=== PATIENT | male | born 1990 | race Caucasian/White ===

== ENCOUNTER 2017-07-10 20:55 | Emergency (ER) | payer SELFPAY ==
[~2017-07-10] VITALS: Ht 152.4 cm; Wt 51.2 kg
[2017-07-10 21:02] VITALS: Ht 152.4 cm; Wt 51.2 kg
[2017-07-10] MEDS ORDERED: IBUPROFEN 800 MG TAB PO ONE (22:30)
[2017-07-10] MEDS ORDERED: IBUP-1542 PO (22:42)
[2017-07-10] MEDS ORDERED: CEPH-443 PO (22:42)
[2017-07-10] MEDS ORDERED: SULF1TAB31 PO (22:42)
--- NOTE | 2017-07-11 01:27 | ERD ---
ER Documentation Chief Complaint Chief Complaint left big toe ingrown nail HPI Is a 27-year-old male who presents to the emergency department today complaining of an ingrown toenails left toe for the past 6 weeks. States he has not taken a medication for the pain. Denies any fevers or chills. ROS All systems reviewed and are negative except as per history of present illness. Medications Home Meds Active Scripts Cephalexin* (Keflex*) 500 Mg Capsule, 500 MG PO QID for 7 Days, CAP Prov:DEBBIE HALL PA-C 07/10/17 Sulfamethoxazole/Trimethoprim* (Bactrim Ds* Tablet) 1 Each Tablet, 1 TAB PO BID for 7 Days, #14 TAB Prov:DEBBIE HALL PA-C 07/10/17 Ibuprofen* (Motrin*) 600 Mg Tab, 600 MG PO Q6, #30 TAB Prov:DEBBIE HALL PA-C 07/10/17 Allergies Allergies: Coded Allergies: No Known Allergy (Unverified , 07/10/17) PMhx/Soc Medical and Surgical Hx: pt denies Medical Hx History of Surgery: Yes (left middle finger arterial repair; 2014) Anesthesia Reaction: No Hx Neurological Disorder: No Hx Respiratory Disorders: No Hx Cardiac Disorders: No Hx Psychiatric Problems: No Hx Miscellaneous Medical Probl: No Hx Alcohol Use: Yes (socially) Hx Substance Use: No Hx Tobacco Use: Yes (cigarettes; 1 pack every 3 months) Smoking Status: Light tobacco smoker Physical Exam Vitals Vital Signs Date Time Temp Pulse Resp B/P Pulse Ox O2 Delivery O2 Flow Rate FiO2 07/10/17 21:02 97.8 82 20 130/68 100 Physical Exam Const: NAD Head: Atraumatic Eyes: Normal Conjunctiva ENT: Normal External Ears, Nose and Mouth. Neck: Full range of motion..~ No meningismus. Resp: Clear to auscultation bilaterally Cardio: Regular rate and rhythm, no murmurs Skin: No petechiae or rashes MSk: Left great toe with evidence of infected ingrown toenail with mild drainage small amount of redness. Onychomycotic great toenail bilateral feet . Neur: Awake and alert Psych: Normal Mood and Affect Results 24 hrs Current Medications Medications (Trade) Dose Ordered Sig/Jayro Route PRN Reason Start Time Stop Time Status Last Admin Dose Admin Ibuprofen (Motrin) 800 mg ONCE ONCE PO 07/10/17 22:30 07/10/17 22:31 DC 07/10/17 22:26 Procedures/MDM This is a 27-year-old male presents emergency department today complaining of an ingrown toenail on his left toe for the past 6 weeks. Patient has not tried any medication. Patient does not have a primary care doctor. On physical exam patient has evidence of a infected ingrown toenail. There is a significant amount of onychomycosis and mild purulent drainage and I do not feel is beneficial to remove the patient's toenail at this time. Patient has fungal infection on other toes have explained to him that he does need to see a bottom crane operator. Patient was given a list of referrals for podiatry. Patient is afebrile and otherwise well-appearing. I have low suspicion for sepsis, deep space tracking infection or cellulitis. Patient was given a prescription for Bactrim and Keflex. He was given Naprosyn here in the emergency department as well as a prescription for Tylenol Motrin for home. At this time the patient is stable for discharge and outpatient management. Patient should follow up with their PCP in the next 1-2 days. They may return to the emergency department sooner for any persistent or worsening of symptoms. Patient understood and agreed with the plan. Departure Diagnosis: Primary Impression: Ingrown toenail Condition: Stable Patient Instructions: Ingrown Toenail, Infected (Abx Only) Referrals: EMELY RIOS KAZUTO H AYVAZIAN, HERMOZ B DPM MEKA GEORGE DPKYMBERLY VIVAS DPM, STEVEN CHAUDHRY, ABID N DPNATHAN CARROLL DPNADIA CARDOZA FARID ESPENSEN, ERIC H. D.P.M. HAGOPJANIAN, ARMEN DPM [facility] () Usted se stone hecho un examen mdico de control que le indica que no est en hamilton condicin que requiera tratamiento urgente en el Departamento de Emergencia. Un estudio ms profundo y el tratamiento de vergara condicin pueden esperar sin ningn riesgo hasta que usted sea atendida/o en el consultorio de vergara mdico o hamilton cl ciara. Es responsabilidad suya arreglar hamilton harvinder para el seguimiento del lorrie. MANEJO DE CONDICIONES NO URGENTES EN EL FUTURO 1) Si usted tiene un mdico de atencin primaria: Usted debera llamar a vergara mdico de atencin primaria antes de venir al departamento de emergencia. Despus de las horas de consultorio, vergara doctor o vergara asociado/a est disponible por telfono. El mdico o enfermero de dennis en el servicio telefnico puede asesorarle por jaycee medio para atender el problema, o lorrie contrario se puede programar hamilton harvinder. 2) Si usted no tiene un mdico de atencin primaria: Llame al mdico o clnica de referencia que aparece abajo courtney las horas de consultorio para hacer hamilton harvinder para que le vean. CLINICAS: [facility] [phone] [facility] [phone] [address] [facility] [facility] [phone] [address] [facility]. [facility] [phone] [address] [facility]. [place] [id number] [phone] [facility] [phone] [address] [facility]. [facility] YOU HAVE RECEIVED A MEDICAL SCREENING EXAM AND THE RESULTS INDICATE THAT YOU DO NOT HAVE A CONDITION THAT REQUIRES URGENT TREATMENT IN THE EMERGENCY DEPARTMENT. FURTHER EVALUATION AND TREATMENT OF YOUR CONDITION CAN WAIT UNTIL YOU ARE SEEN IN YOUR DOCTORS OFFICE WITHIN THE NEXT 1-2 DAYS. IT IS YOUR RESPONSIBILITY TO MAKE AN APPOINTMENT FOR FOLOW-UP CARE. IF YOU HAVE A PRIMARY DOCTOR --you should call your primary doctor and schedule an appointment IF YOU DO NOT HAVE A PRIMARY DOCTOR YOU CAN CALL OUR PHYSICIAN REFERRAL HOTLINE AT IF YOU CAN NOT AFFORD TO SEE A PHYSICIAN YOU CAN CHOSE FROM THE FOLLOWING [facility] CLINICS [facility] [address] [facility] [address] [facility] [address] [facility] [address] [facility]. [facility] [phone] [facility]. [facility]. [address] Additional Instructions: Call your primary care doctor TOMORROW for an appointment during the next 1-2 days.See the doctor sooner or return here if your condition worsens before your appointment time. Make an appt with primary care doctor for referral to podiatry specialist. Take both antibiotics as prescribed. Take Naprosyn or Tylenol or Motrin for pain DEBBIE HALL PA-C Jul 11, 2017 01:27
== END 2017-07-10 23:15 | disposition home or self-care (01) ==
LOC: FTE 20:55
DX: L60.0 Ingrowing nail (principal); F17.210 Nicotine dependence, cigarettes, uncomplicated
CPT/HCPCS: 99284